=== PATIENT | male | born 1935 | race Caucasian/White ===

== ENCOUNTER 2024-12-10 15:17 | Emergency (ER) | payer OTHER ==
[~2024-12-10] VITALS: Ht 177.8 cm; Wt 85.3 kg
[2024-12-10] MEDS ORDERED: IOHEXOL 350 MG/ML 100 ML VIAL IV ONE ×2 (15:45→16:05)
[2024-12-10] MEDS ORDERED: SODIUM CHLORIDE 0.9% 100 ML BAG IV ONE (15:45)
[2024-12-10] MEDS ORDERED: SODIUM CHLORIDE 0.9% 100 ML IV ONE (16:05)
[2024-12-10 16:09] LABS: BASO # 0.0 10*3/uL (0.0-0.1); BASO % 0.3 % (0.0-1.0); EOS # 0.1 10*3/uL (0.0-0.4); EOS % 1.2 % (1.0-4.0); MEAN CELL VOLUME 97.1 fl (80.0-94.0); MEAN CORPUSCULAR HGB 30.2 pg (27.0-31.0); MEAN PLATELET VOLUME 10.2 fl (9.6-12.3); MONO # 0.8 10*3/uL (0.1-1.0); MONO % 11.6 % (3.0-9.0); NEUT # 4.5 10*3/uL (2.3-7.9); NEUT % 67.5 % (47.0-73.0); NUCLEATED RED BLOOD CELL 0.0 % (0.0-0.0); NUCLEATED RED BLOOD CELL 0.0 10*3/uL (0.0-0.0); PLATELET COUNT AUTOMATED 145 10*3/uL (130-400); RED CELL DISTRI WIDTH 13.7 % (0-14.5)
[2024-12-10 16:20] LABS: ACT PARTIAL THROMBO TIME 27.7 SECONDS (20.0-32.1)
[2024-12-10] MEDS ORDERED: ASPIRIN 325 MG ENTERIC COATED PO ONE ×2 (16:30→17:10)
[2024-12-10 16:34] LABS: BUN 23 mg/dl (9-23); CPK 54 U/L (34-171); SGPT/ALT 10 U/L (5-49)
[2024-12-10 17:09] LABS: BILIRUBIN Negative (Negative); BLOOD Negative (Negative); CLARITY Clear (Clear); COLOR Yellow (Yellow); KETONE Negative (Negative); LEUKO ESTERASE Negative (Negative); NITRITE Negative (Negative); PH 5.0 (4.5-8.0); SPECIFIC GRAVITY 1.025 (1.001-1.030); UROBILINOGEN 1.0 E.U./dl (0.0-1.0)
[2024-12-10] MEDS ORDERED: LEVETIRACETAM IN NACL (ISO-OS) 100 ML IV ONE (17:10)
[2024-12-10 17:20] LABS: MUCOUS 1+
== END 2024-12-10 23:11 | disposition short-term general hospital (02) ==
LOC: ED 15:17
PROVIDERS: Emergency Medicine
DX: R56.9 Unspecified convulsions (principal); D64.9 Anemia, unspecified; Z86.73 Personal history of transient ischemic attack (TIA), and cerebral infarction without residual deficits

== ENCOUNTER 2025-01-16 14:21 | Emergency (ER) | payer OTHER ==
[2025-01-16 15:18] LABS: BUN 30 mg/dl (9-23); CPK 39 U/L (34-171)
[2025-01-16 15:19] LABS: ETHYL ALCOHOL < 3.0 mg/dl (<3)
[2025-01-16] MEDS ORDERED: LEVETIRACETAM IN NACL (ISO-OS) 100 ML IV ONE (15:20)
[2025-01-16 17:37] LABS: BASO # 0.0 10*3/uL (0.0-0.1); BASO % 0.4 % (0.0-1.0); EOS # 0.1 10*3/uL (0.0-0.4); EOS % 1.6 % (1.0-4.0); MEAN CELL VOLUME 95.9 fl (80.0-94.0); MEAN CORPUSCULAR HGB 30.2 pg (27.0-31.0); MEAN PLATELET VOLUME 10.5 fl (9.6-12.3); MONO # 0.6 10*3/uL (0.1-1.0); MONO % 9.5 % (3.0-9.0); NEUT # 4.6 10*3/uL (2.3-7.9); NEUT % 68.2 % (47.0-73.0); NUCLEATED RED BLOOD CELL 0.0 % (0.0-0.0); NUCLEATED RED BLOOD CELL 0.0 10*3/uL (0.0-0.0); PLATELET COUNT AUTOMATED 151 10*3/uL (130-400); RED CELL DISTRI WIDTH 14.0 % (0-14.5)
[2025-01-16] MEDS ORDERED: SODIUM CHLORIDE 0.9% 500 ML IV ONE (17:40)
== END 2025-01-16 19:03 | disposition home or self-care (01) ==
LOC: ED 14:21
PROVIDERS: Emergency Medicine
DX: R56.9 Unspecified convulsions (principal); R91.1 Solitary pulmonary nodule; R05.9 Cough, unspecified; R53.1 Weakness; F03.90 Unspecified dementia, unspecified severity, without behavioral disturbance, psychotic disturbance, mood disturbance, and anxiety

== ENCOUNTER 2025-05-01 15:11 | Emergency (ER) | payer OTHER ==
[~2025-05-01] VITALS: Ht 177.8 cm; Wt 90.7 kg
== END 2025-05-01 17:56 | disposition home or self-care (01) ==
LOC: ED 15:11
DX: S51.011A Laceration without foreign body of right elbow, initial encounter (principal); Z86.73 Personal history of transient ischemic attack (TIA), and cerebral infarction without residual deficits; Z88.6 Allergy status to analgesic agent; Z88.8 Allergy status to other drugs, medicaments and biological substances; W18.39XA Other fall on same level, initial encounter; Y93.89 Activity, other specified; Y92.89 Other specified places as the place of occurrence of the external cause; Y99.8 Other external cause status